=== PATIENT | male | born 1975 | race Hispanic/Latino ===

== ENCOUNTER 2018-02-15 11:29 | Emergency (ER) | payer OTHER, SELFPAY ==
[2018-02-15 11:30] VITALS: BP 132/80; PULSE 70; RESP 18; TEMP 36.7; O2SAT 98
--- NOTE | 2018-02-15 12:09 | ED.SOB ---
HPI - SOB/Dyspnea <SHANE Leiva - Last Filed: 02/15/18 14:34> General Chief Complaint: Shortness of Breath/Dyspnea Stated Complaint: SOB, LEFT SIDED PAIN Time Seen by Provider: 02/15/18 12:09 Source: patient and family History of Present Illness Patient presents with left lower rib pain. He states of 50 lb family member jumped on his back on Monday then he went for an 8 mi walk on Monday. That is when he started having pain. It was made worse yesterday on Monday when he was doing yard work and lifted heavy wheelbarrow. He states he felt popping when he lifted a heavy wheelbarrow. He states he is having trouble taking a deep breath because of the pain in his left lower side. He denies any chest pain, abdominal pain, dizziness, lightheadedness, fever, nausea, vomiting, diarrhea. He states he is not constipated and had a bowel movement yesterday. He denies urinary symptoms. He states he was taking both ibuprofen and Aleve yesterday for the pain and that helped a bit. However he has not taken anything for pain today as he ???wants the staff to see how much pain he is in.??? He rates his pain over 10/10 on a 0-10 scale was 0 being no pain and 10 being eaten alive bear. He states that it hurts to take a deep breath and cough. He states lying on his opposite side help so he does not have weight. Otherwise no position or activity makes him feel more comfortable. Related Data Home Medications Medication Instructions Recorded Confirmed loratadine 10 mg PO DAILY PRN 02/15/18 02/15/18 montelukast [Singulair] 10 mg PO DAILY 02/15/18 02/15/18 Allergies Allergy/AdvReac Type Severity Reaction Status Date / Time No Known Drug Allergies Allergy Verified 02/15/18 13:02 Review of Systems <SHANE Leiva - Last Filed: 02/15/18 14:34> Review of Systems GENERAL: Denies chills, fatigue, malaise, fever, sweats. HEENT: Denies sinus pain, ear pain, sore throat, difficulty swallowing, dizziness. RESPIRATORY: Denies dyspnea, cough, wheezing, hemoptysis, sputum. CARDIOVASCULAR: See HPI GASTROINTESTINAL: See HPI : Denies dysuria, frequency, incontinence, hematuria, urinary retention. MUSCULOSKELETAL: See HPI SKIN: Denies rash, skin lesions, or other NEUROLOGIC: Denies weakness, headache, numbness, change in speech, confusion, seizures, incoordination. PSYCHIATRIC: No concerning psychosocial issues. 12 point review of systems is negative except for those stated above Exam <AMRIK Leiva-BC - Last Filed: 02/15/18 14:34> Narrative Exam Narrative: GENERAL: This is a well-nourished, well-developed patient, lying on left side on stretcher. HEAD: Atraumatic. Normocephalic. No temporal or scalp tenderness. EYES: Pupils equal round and reactive. Extraocular motions intact. No scleral icterus. No injection or drainage. ENT: Nose without bleeding, purulent drainage or septal hematoma. Throat without erythema, tonsillar hypertrophy or exudate. Uvula midline. Airway patent. NECK: Trachea midline. No JVD or lymphadenopathy. Supple, nontender, no meningeal signs. CARDIOVASCULAR: Regular rate and rhythm without murmurs, gallops, or rubs. RESPIRATORY: Clear to auscultation. Breath sounds equal bilaterally. No wheezes, rales, or rhonchi. GASTROINTESTINAL: Abdomen soft, non-tender, nondistended. No hepato-splenomegaly, or palpable masses. No guarding. EXTREMITIES: No clubbing, cyanosis, or edema. No joint tenderness, effusion, or edema noted. BACK: Nontender without deformity or crepitance. No flank tenderness. NEURO: AOx3. SKIN: No rash or erythema. No ecchymosis, erythema, swelling noted left lower ribs. CHEST Wall: Pain on lateral compression of ribs. Pain on palpation of lower left ribs. Initial Vital Signs Initial Vital Signs: Vital Signs Temperature 98.0 F 02/15/18 11:30 Pulse Rate 70 02/15/18 11:30 Respiratory Rate 18 02/15/18 11:30 Blood Pressure 132/80 H 02/15/18 11:30 Pulse Oximetry 98 02/15/18 11:30 <Aylin Eugene MD - Last Filed: 02/15/18 14:41> Initial Vital Signs Initial Vital Signs: Vital Signs Temperature 98.0 F 02/15/18 11:30 Pulse Rate 70 02/15/18 11:30 Respiratory Rate 18 02/15/18 11:30 Blood Pressure 132/80 H 02/15/18 11:30 Pulse Oximetry 98 02/15/18 11:30 Course <SHANE Leiva - Last Filed: 02/15/18 14:34> Hospital Course: 12:10 - patient evaluated. X-ray ordered. Patient offered ice pack or heat pack. Patient declined as he ???wants staff to cm much pain he is in. 12:30-patinet to xray Orders Ordered: ED Orders 02/15/18 12:21 XR ribs LT min 3V w CXR1V Stat Discontinued Medications Ketorolac Tromethamine (Toradol) 60 mg IM NOW ONE Stop: 02/15/18 13:00 Last Admin: 02/15/18 13:07 Dose: 60 mg Reevaluation(s) Reevaluation #1: Patient has received Toradol at this time and is feeling slightly better. Discussed x-ray results with patient and family. is concerned about spleen and requesting ultrasound. Discussed at length that patient's abdominal exam is benign, likelihood of splenic injury is low especially given normal chest x-ray. Time: 13:15 Reevaluation #2: Dr. Eugene in to ultrasound patient for discomfort. No observable injury the ultrasound. Time: 13:35 Vital Signs - 8 hr 02/15/18 11:30 02/15/18 13:00 02/15/18 14:02 Temperature 98.0 F 98.8 F Pulse Rate 70 58 L 57 L Respiratory Rate 18 20 10 L Blood Pressure 132/80 H Blood Pressure [Right Arm] 103/53 L 110/70 Pulse Oximetry 98 96 100 <Aylin Eugene MD - Last Filed: 02/15/18 14:41> Orders Ordered: ED Orders 02/15/18 12:21 XR ribs LT min 3V w CXR1V Stat Discontinued Medications Ketorolac Tromethamine (Toradol) 60 mg IM NOW ONE Stop: 02/15/18 13:00 Last Admin: 02/15/18 13:07 Dose: 60 mg Vital Signs - 8 hr 02/15/18 11:30 02/15/18 13:00 02/15/18 14:02 Temperature 98.0 F 98.8 F Pulse Rate 70 58 L 57 L Respiratory Rate 18 20 10 L Blood Pressure 132/80 H Blood Pressure [Right Arm] 103/53 L 110/70 Pulse Oximetry 98 96 100 [facility] - SOB/Dyspnea <HSANE Leiva - Last Filed: 02/15/18 14:34> Medical Records Imaging Data Chest x-ray: Radiologist's impression: [address] [address] XRay Report Signed Patient: Davis Julien MR#: [id number] : 1975 Acct:[id number] Age/Sex: 42 / M Date of Service: 02/15/18 Loc: ED Accession Number: [id number] Procedure: XR ribs LT min 3V w CXR1V Ordering Provider: Tabatha Vasquez PROCEDURE: XR RIBS LT MIN 3V W CXR1V INDICATIONS: 42 year-old male with left rib pain after injury. TECHNIQUE: 2 views of the left ribs were acquired, along with a single view chest. COMPARISON: None. FINDINGS: Skin marker denotes the site of clinical concern. Surgical changes and devices: None. Bones and chest wall: No fractures or dislocations. No suspicious bony lesions. Overlying soft tissues appear unremarkable. Lungs and pleura: No pleural effusions or pneumothorax. Lungs appear clear. Mediastinum: Mediastinal contours appear normal. Heart size is normal. IMPRESSION: No acute bony injuries of the inferior left chest wall. Dictated by: Ollie Ferguson M.D. on 02/15/2018 at 12:58 Approved by: Ollie Ferguson M.D. on 02/15/2018 at 13:00 [facility] Narrative Medical decision making narrative: Patient presents with left-sided rib pain after yd work and having child jump on him. No fracture or displaced rib fracture noted on x-ray. Ultrasound shows no acute etiology regarding spleen. Exam and imaging are supportive of a rib contusion. Discussed at length with patient and continued ibuprofen, supportive care, taking deep breaths in order to prevent pneumonia. No questions or concerns upon discharge. Discharge Plan Departure Patient Disposition: Home, Self-Care Clinical Impression: Rib pain on left side Discharge Date/Time: 02/15/18 14:06 Interventions: ED Discharge Assessment Last Done: 02/15/18 14:05 Instructions: DI for Rib Contusion Activity Restrictions/Additional Instructions: Your chest x-ray came back normal and your ultrasound showed no damage to her spleen. We suggest continued ibuprofen and ice. Please do not take ibuprofen for about 6-8 hours after that Toradol injection. It is important to keep taking deep breaths as we do not want to to developing pneumonia from this injury. Feel free to come back to the emergency department or follow up with your primary care if needed. Prescriptions: No Action montelukast [Singulair] 10 mg Tablet 10 mg PO DAILY RF: 0 loratadine 10 mg Tablet 10 mg PO DAILY PRN (Reason: Allergy Symptoms) RF: 0 Referrals: Dorian Barajas CNP [Primary Care Provider] - <Aylin Eugene MD - Last Filed: 02/15/18 14:41> Sign Out Provider Sign Out Attestation: I attest to the documentation recorded. I was the attending of record and available in the ED throughout course. I agree with assessment and plan.
--- NOTE | 2018-02-15 12:10 | PC.NURSE ---
pt reports, son jumped on him (50pounds) couple days ago, then while walking last monday, felt and heard a pop left lower rib, now with severe muscle spasm and hurts to move or taking deep breath. has been taking naprosyn and ibuprofen, last dose yesterday. denies other injuries.
--- NOTE | 2018-02-15 12:21 | DI.RAD.S_ITS ---
PROCEDURE: XR RIBS LT MIN 3V W CXR1V INDICATIONS: 42 year-old male with left rib pain after injury. TECHNIQUE: 2 views of the left ribs were acquired, along with a single view chest. COMPARISON: None. FINDINGS: Skin marker denotes the site of clinical concern. Surgical changes and devices: None. Bones and chest wall: No fractures or dislocations. No suspicious bony lesions. Overlying soft tissues appear unremarkable. Lungs and pleura: No pleural effusions or pneumothorax. Lungs appear clear. Mediastinum: Mediastinal contours appear normal. Heart size is normal. IMPRESSION: No acute bony injuries of the inferior left chest wall. Dictated by: Ollie Ferguson M.D. on 02/15/2018 at 12:58 Approved by: Ollie Ferguson M.D. on 02/15/2018 at 13:00
[2018-02-15 13:00] VITALS: BP 103/53; PULSE 58; RESP 20; TEMP 37.1; O2SAT 96
[2018-02-15] MEDS: KETOROLAC 60 MG/2 ML VIAL IM (13:07)
--- NOTE | 2018-02-15 13:49 | PC.NURSE ---
pt in supine position, with comfort with movement.
[2018-02-15 14:02] VITALS: BP 110/70; PULSE 57; RESP 10; O2SAT 100
== END 2018-02-15 14:06 | disposition home or self-care (01) ==
PROVIDERS: Emergency Provider Nurse Practitioner Family; Family Provider Registered Nurse Diabetes Educator; PCP Registered Nurse Diabetes Educator
DX: R07.81 Pleurodynia (principal)
CPT/HCPCS: 71101; 96372; 99283; J1885

== ENCOUNTER 2019-10-31 23:04 | Emergency (ER) | payer OTHER, MEDICAID, SELFPAY ==
[2019-10-31 23:12] VITALS: BP 132/82; PULSE 104; RESP 20; TEMP 37.7; O2SAT 100
--- NOTE | 2019-10-31 23:30 | ED_ITS ---
HPI - Back Pain/Injury General Chief Complaint: Back Pain/Injury Stated Complaint: right side/back pain Time Seen by Provider: 10/31/19 23:26 Source: patient Mode of arrival: Ambulatory Limitations: no limitations History of Present Illness HPI Narrative: 44-year-old male here for evaluation of right-sided flank pain. He states that it started yesterday. Worsened today. Has had fevers and body aches and sore throat and headache. His kids were sick recently however they have improved. He was taken [id number] medications over the past couple days. Has had kidney stones in the past. States this does not feel like kidney stone. Related Data Home Medications Medication Instructions Recorded Confirmed loratadine 10 mg PO DAILY PRN 02/15/18 02/15/18 montelukast [Singulair] 10 mg PO DAILY 02/15/18 02/15/18 Allergies Allergy/AdvReac Type Severity Reaction Status Date / Time No Known Drug Allergies Allergy Verified 02/15/18 13:02 Review of Systems Constitutional Constitutional: Reports chills, Reports fatigue, Reports fever(s) and Reports headache(s) ENT Ears, Nose, Mouth, and Throat: Reports headache(s) Cardiovascular Cardiovascular: Denies chest pain and Denies dyspnea Respiratory Respiratory: Denies cough and Denies dyspnea Gastrointestinal Gastrointestinal: Denies abdominal pain, Denies change in bowel habits, Denies nausea and Denies vomiting Genitourinary Genitourinary: Denies hematuria, Denies dysuria and Reports flank pain Musculoskeletal Musculoskeletal: Reports myalgias and Reports arthralgias Integumentary/Breasts Skin/Breast: Denies lesions and Denies rash Neurologic Neurologic: Denies behavioral changes and Reports headache(s) Psychiatric Psychiatric: Denies behavioral changes Endocrine Endocrine: Reports fatigue Hematologic/Lymphatic Hematologic/Lymphatic: Denies easy bleeding and Denies easy bruising Patient History Medical History Abscess of left groin (Inactive) Folliculitis (Inactive) Social History Smoking Status: Former smoker Smoking Status: Former smoker alcohol intake frequency: 0-2 drinks per day Substance Use Type: does not use Exam Initial Vital Signs Initial Vital Signs: Vital Signs Temperature 99.9 F H 10/31/19 23:12 Pulse Rate 104 H 10/31/19 23:12 Respiratory Rate 20 10/31/19 23:12 Blood Pressure 132/82 10/31/19 23:12 Pulse Oximetry 100 10/31/19 23:12 Const General: cooperative, comfortable and well developed Limitations: mental status not altered HENMT Head: normal to inspection, normocephalic and No abrasion Neck Neck: no meningeal signs Resp Effort & Inspection: normal respiratory effort Auscultation: clear to auscultation bilaterally Cardio Rate: tachycardic Rhythm: regular rhythm Back/Spine/Pelvis Back: CVA tenderness right Skin Lesions: no lesions Rashes: no rashes Neuro General: alert, awake and oriented x3 Cognition: normal cognition Speech: speech normal Extrem General: normal to inspection and capillary refill normal Psych Appearance: grossly normal and well kempt Scores GCS Steve coma scale eye opening: Spontaneous Steve coma scale verbal response: Orientated [place] coma scale motor response: Obey commands [place] coma scale total score: 15 Course Orders Ordered: ED Orders 10/31/19 23:33 Basic Metabolic Panel Stat Complete Blood Count AUTO DIFF Stat 10/31/19 23:49 Influenza A & B (PCR) Stat 11/01/19 00:45 Urinalysis and Microscopic Stat Vital Signs Vital signs: Vital Signs - 8 hr 10/31/19 23:12 Temperature 99.9 F H Pulse Rate 104 H Respiratory Rate 20 Blood Pressure 132/82 Pulse Oximetry 100 MDM - Back Pain/Injury Lab Data Attestation: I reviewed the patient's lab results. Result diagrams: 11/01/19 00:10 11/01/19 00:10 Labs: Lab Results 10/31/19 11/01/19 11/01/19 Range/Units 23:49 00:10 00:10 WBC 5.9 (4.5-11.0) X10^3/uL RBC 5.14 (4.5-5.9) X10^6/uL Hgb 16.1 (13.5-17.5) g/dL Hct 46.2 (41-53) % MCV 90.0 (80-100) fL MCH 31.3 (26-34) PG MCHC 34.8 (30-36) % RDW 12.9 (11.6-14.8) % Plt Count 174 (150-400) X10^3/uL Neut % (Auto) 57.2 (50-75) % Lymph % (Auto) 24.7 L (25-40) % [place] % (Auto) 14.0 (3-14) % Eos % (Auto) 3.4 (2-4) % Baso % (Auto) 0.7 (0-2) % Neut # (Auto) 3400 (0535-3492) /uL Lymph # (Auto) 1500 (3329-7701) /uL [place] # (Auto) 800 (0-900) /uL Eos # (Auto) 200 (0-450) /uL Baso # (Auto) 0 (0-100) /uL Sodium 137 (137-145) mmol/L Potassium 3.9 (3.4-5.1) mmol/L Chloride 96 L (98-107) mmol/L Carbon Dioxide 31 (22-32) mmol/L BUN 15 (9-20) mg/dL Creatinine 0.90 (0.66-1.25) mg/dL Estimated GFR > 60.0 (>60) mL/min BUN/Creatinine Ratio 16.7 (6-22) Glucose 101 H (70-100) mg/dL Calcium 9.5 (8.4-10.2) mg/dL Urine Color Urine Appearance Urine pH (4.5-8.0) Ur Specific [place] (1.000-1.035) Urine Protein (Negative) Urine Glucose (UA) (Negative) g/dL Urine Ketones (NEGATIVE) Urine Occult Blood (Negative) Urine Nitrate (Negative) Urine Bilirubin (NEGATIVE) Urine Urobilinogen (0.2) E.U./dL Ur Leukocyte Esterase (NEGATIVE) Urine RBC (0-5/HPF) Urine WBC (0-5/HPF) Urine Bacteria (None) Ur Culture Indicated? Micro UA Comment Influenza A (RT-PCR) Flu a negative (NEGATIVE) Influenza B (RT-PCR) Flu b positive H (NEGATIVE) 11/01/19 Range/Units 00:45 WBC (4.5-11.0) X10^3/uL RBC (4.5-5.9) X10^6/uL Hgb (13.5-17.5) g/dL Hct (41-53) % MCV (80-100) fL MCH (26-34) PG MCHC (30-36) % RDW (11.6-14.8) % Plt Count (150-400) X10^3/uL Neut % (Auto) (50-75) % Lymph % (Auto) (25-40) % [place] % (Auto) (3-14) % Eos % (Auto) (2-4) % Baso % (Auto) (0-2) % Neut # (Auto) (8928-0458) /uL Lymph # (Auto) (7301-3780) /uL [place] # (Auto) (0-900) /uL Eos # (Auto) (0-450) /uL Baso # (Auto) (0-100) /uL Sodium (137-145) mmol/L Potassium (3.4-5.1) mmol/L Chloride (98-107) mmol/L Carbon Dioxide (22-32) mmol/L BUN (9-20) mg/dL Creatinine (0.66-1.25) mg/dL Estimated GFR (>60) mL/min BUN/Creatinine Ratio (6-22) Glucose (70-100) mg/dL Calcium (8.4-10.2) mg/dL Urine Color Yellow Urine Appearance Clear Urine pH 5.0 (4.5-8.0) Ur Specific [place] 1.020 (1.000-1.035) Urine Protein Negative (Negative) Urine Glucose (UA) Negative (Negative) g/dL Urine Ketones Negative (NEGATIVE) Urine Occult Blood Negative (Negative) Urine Nitrate Negative (Negative) Urine Bilirubin Negative (NEGATIVE) Urine Urobilinogen 0.2 (0.2) E.U./dL Ur Leukocyte Esterase Negative (NEGATIVE) Urine RBC None seen (0-5/HPF) Urine WBC None seen (0-5/HPF) Urine Bacteria None seen (None) Ur Culture Indicated? Cult not indicated Micro UA Comment Microscopic normal Influenza A (RT-PCR) (NEGATIVE) Influenza B (RT-PCR) (NEGATIVE) MDM Narrative Medical decision making narrative: Urine shows no signs of infection. Low suspicion for pyelonephritis. Low suspicion for kidney stone. No rash on his side. Low suspicion for zoster. Kidney functions unremarkable. He is flu B positive which is not surprising giving his history and physical. We did discuss use of Tylenol and/or ibuprofen. Discussed use of increasing his fluid intake. No indication for antibiotics. Patient was given return precautions and follow-up instructions. He expressed understanding and agreement plan. I do suspect his symptoms are related to musculoskeletal pain given his diagnosis of flu Discharge Plan Departure Patient Disposition: Home Clinical Impression: Influenza B Instructions: DI for Influenza -- Adult Activity Restrictions/Additional Instructions: Increase your fluid intake. You can take Tylenol and/or ibuprofen for any fevers or body aches. Return to the emergency department for any new or worsening symptoms Prescriptions: No Action montelukast [Singulair] 10 mg Tablet 10 mg PO DAILY RF: 0 loratadine 10 mg Tablet 10 mg PO DAILY PRN (Reason: Allergy Symptoms) RF: 0 Referrals: Dorian Barajas CNP [Primary Care Provider] - Stand Alone Forms: Work Release Note
[2019-11-01 00:20] LABS: Add Manual Diff / Slide Review NO; Basophils Absolute Auto 0 /uL (0-100); Basophils Percent Auto 0.7 % (0-2); Eosinophils Absolute Auto 200 /uL (0-450); Eosinophils Percent Auto 3.4 % (2-4); Hematocrit 46.2 % (41-53); Hemoglobin 16.1 g/dL (13.5-17.5); Lymphocytes Absolute Auto 1500 /uL (1100-4500); Lymphocytes Percent Auto 24.7 % (25-40); Mean Corpuscular HGB Conc 34.8 % (30-36); Mean Corpuscular Hemoglobin 31.3 PG (26-34); Monocytes Absolute Auto 800 /uL (0-900); Neutrophils Absolute Auto 3400 /uL (1500-7000); Neutrophils Percent Auto 57.2 % (50-75); Platelet Count 174 X10^3/uL (150-400); Red Blood Cell Count 5.14 X10^6/uL (4.5-5.9); Red Cell Distribution Width 12.9 % (11.6-14.8); White Blood Cell Count 5.9 X10^3/uL (4.5-11.0)
[2019-11-01 00:27] LABS: BUN Creatinine Ratio 16.7 (6-22); Blood Urea Nitrogen 15 mg/dL (9-20); Calcium 9.5 mg/dL (8.4-10.2); Carbon Dioxide 31 mmol/L (22-32); Chloride 96 mmol/L (98-107); Estimated Glomerular Filt Rate > 60.0 mL/min (>60); Glucose 101 mg/dL (70-100); HEMOLYSIS < 15 (0-50); Potassium 3.9 mmol/L (3.4-5.1); Sodium 137 mmol/L (137-145)
[2019-11-01 00:36] LABS: Influenza A - CEPHEID Flu A NEGATIVE (NEGATIVE); Influenza B - CEPHEID Flu B POSITIVE (NEGATIVE)
[2019-11-01 00:56] LABS: Bacteria Urine None Seen; RBC Urine None Seen (0-5/HPF); WBC Urine None Seen (0-5/HPF)
[2019-11-01 00:58] LABS: Appearance Urine UA CLEAR; Bilirubin Urine UA NEGATIVE (NEGATIVE); Color Urine UA YELLOW; Glucose Urine UA NEGATIVE (Negative); Ketones Urine UA NEGATIVE (NEGATIVE); Leukocyte Esterase Urine UA NEGATIVE (NEGATIVE); Nitrite Urine UA NEGATIVE (Negative); Occult Blood Urine UA NEGATIVE (Negative); Protein Urine UA NEGATIVE (Negative); Urobilinogen Urine UA 0.2 E.U./dL (0.2)
[2019-11-01 01:08] LABS: Culture Indicated Urine Cult Not Indicated; Urine Comments Microscopic Normal
[2019-11-01 01:33] VITALS: BP 131/81; PULSE 90; RESP 18; TEMP 37; O2SAT 99
== END 2019-11-01 01:34 | disposition home or self-care (01) ==
PROVIDERS: Emergency Provider Emergency Medicine; Family Provider Registered Nurse Diabetes Educator; PCP Registered Nurse Diabetes Educator
DX: J10.1 Influenza due to other identified influenza virus with other respiratory manifestations (principal)
CPT/HCPCS: 36415; 80048; 81001; 85025; 87502; 99281; 99283

== ENCOUNTER → 2021-01-20 09:51 | Outpatient (CLI) | payer OTHER, MEDICAID, SELFPAY ==
[2021-01-23 22:11] LABS: Alternaria alternata IgE <0.10 kU/L (Class 0); Aspergillus fumigatus IgE <0.10 kU/L (Class 0); Box Elder IgE 0.24 kU/L (Class 0/I); Cladosporium herbarum IgE <0.10 kU/L (Class 0); Cockroach IgE <0.10 kU/L (Class 0); Cottonwood IgE 0.25 kU/L (Class 0/I); Dog Dander IgE 0.38 kU/L (Class I); Elm Tree IgE 0.22 kU/L (Class 0/I); Immunoglobulin E 492 IU/mL (6-495); Milk IgE 0.17 kU/L (Class 0/I); Mountain Cedar IgE 0.23 kU/L (Class 0/I); Mouse Urine Proteins IgE <0.10 kU/L (Class 0); Nettle IgE 0.22 kU/L (Class 0/I); Oak Tree IgE 0.25 kU/L (Class 0/I); Penicillium chrysogen IgE <0.10 kU/L (Class 0); Pigweed, Common IgE 0.14 kU/L (Class 0/I); Silver Birch IgE 0.23 kU/L (Class 0/I); Timothy Grass IgE 0.23 kU/L (Class 0/I); Walnut Allery IgE 0.26 kU/L (Class 0/I); White ash IgE 0.24 kU/L (Class 0/I)
[2021-01-25 13:53] LABS: Almond IgE 0.21 kU/L (Class 0/I); Cashew Nut IgE 0.11 kU/L (Class 0/I); Codfish Allergy IgE < 0.10 kU/L (Class 0); Egg White IgE 0.29 kU/L (Class 0/I); Hazelnut IgE 0.29 kU/L (Class 0/I); Milk IgE 0.16 kU/L (Class 0/I); Peanut IgE 0.26 kU/L (Class 0/I); Salmon Allergy IgE < 0.10 kU/L (Class 0); Scallop Allergy IgE < 0.10 kU/L (Class 0); Sesame seed Allergy IgE 0.26 kU/L (Class 0/I); Shrimp IgE <0.10 kU/L (Class 0); Soybean IgE 0.17 kU/L (Class 0/I); Tuna Allergy IgE < 0.10 kU/L (Class 0); Walnut IgE 0.12 kU/L (Class 0/I); Wheat Allergy IgE 0.19 kU/L (Class 0/I)
== END ==
PROVIDERS: Family Provider Registered Nurse Diabetes Educator; PCP Registered Nurse Diabetes Educator; Referring Provider Registered Nurse Diabetes Educator; Visit Provider Registered Nurse Diabetes Educator
DX: J30.9 Allergic rhinitis, unspecified (principal); Z91.018 Allergy to other foods
CPT/HCPCS: 82785; 86003

== ENCOUNTER → 2021-01-20 10:14 | Outpatient (CLI) | payer OTHER, MEDICAID, SELFPAY ==
[2021-01-20] MEDS: COVID-19 VACC #1, MRNA(MOD) 100 MCG/0.5 ML VIAL IM (10:22)
== END ==
PROVIDERS: Family Provider Registered Nurse Diabetes Educator; PCP Registered Nurse Diabetes Educator; Visit Provider Internal Medicine
DX: Z23 Encounter for immunization (principal)
CPT/HCPCS: 0011A; 91301

== ENCOUNTER → 2021-02-17 10:01 | Outpatient (CLI) | payer OTHER, MEDICAID, SELFPAY ==
[2021-02-17] MEDS: COVID-19 VACC #2, MRNA(MOD) 100 MCG/0.5 ML VIAL IM (10:06)
== END ==
PROVIDERS: Family Provider Registered Nurse Diabetes Educator; PCP Registered Nurse Diabetes Educator; Visit Provider Internal Medicine
DX: Z23 Encounter for immunization (principal)
CPT/HCPCS: 0012A; 91301

== ENCOUNTER 2022-07-18 08:39 | Emergency (ER) | payer OTHER, SELFPAY ==
[2022-07-18 08:49] VITALS: BP 141/82; PULSE 70; RESP 16; TEMP 36.9; O2SAT 97; BMI 23.3
--- NOTE | 2022-07-18 09:24 | ED_ITS ---
HPI - Back Pain/Injury General Chief Complaint: Back Pain/Injury Stated Complaint: back pain herniated disc x2 days Time Seen by Provider: 07/18/22 09:21 Source: patient Mode of arrival: Ambulatory Limitations: no limitations History of Present Illness HPI Narrative: This is a 46-year-old male with acute on chronic back pain who has had prior injections in his lower back approximately 5 years ago. Patient states Monday he was installing a doggie door for his sister he was on the ground and on his hands and knees for a prolonged. When he started to get up he tweaked his back. 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 Today he states it is much worse. He describes the pain as being his lower lumbar region bilaterally with no radiation. No paresthesias, no numbness or weakness. Patient denies any loss of bowel or bladder control. No saddle anesthesia. No fevers or chills no other GI or urinary symptoms. He tried a single dose of ibuprofen earlier today. He has had Percocet and gabapentin in the past. Patient states no other daily medications. No other surgeries. Denies any drug allergies. Former smoker, occasional alcohol, no illicit. His primary care is Dorian Barajas. Patient's main goal at this moment is short-term pain management till he can follow-up. Related Data Previous Rx's Medication Instructions Recorded loratadine 10 mg tablet 10 mg PO DAILY PRN Allergy 08/27/20 Symptoms #90 tabs montelukast 10 mg tablet 10 mg PO DAILY #90 tabs 08/27/20 (Singulair) gabapentin 300 mg capsule 300 mg PO DAILY #14 caps 07/18/22 oxycodone 5 mg tablet 5 mg PO Q6H PRN pain #10 tabs 07/18/22 meloxicam 7.5 mg tablet 7.5 mg PO BID PRN pain (scale 07/19/22 score 1-3) #30 tabs Allergies Allergy/AdvReac Type Severity Reaction Status Date / Time No Known Drug Allergies Allergy Verified 07/19/22 11:23 Review of Systems Review of Systems ROS Unobtainable: All systems reviewed & are unremarkable except as noted in HPI and below Patient History Medical History Abscess of left groin Allergic rhinitis Bilateral thumb pain Chronic back pain (~2004) Folliculitis Hand pain Kidney stones (~2018) Surgical History Anesthesia History of vasectomy (~2009) Family History Father Diabetes mellitus Mother History of heart disease Hypertension Mental health problem Stroke Social History Smoking Status: Former smoker Smoking Status: Former smoker alcohol intake frequency: 0-2 drinks per day Substance Use Type: does not use Exam Narrative Exam Narrative: GENERAL: Alert and oriented x three, male in [id number] distress. HEENT: Head normocephalic, atraumatic, EOMI, pupils reactive, face symmetric, moist mucous membranes NECK: Supple, full range of motion CARDIOVASCULAR: Regular rate and rhythm without murmurs, rubs or gallops. RESPIRATORY: Breath sounds equal bilaterally, no wheezes rales or rhonchi. ABDOMEN: Soft, nontender. Normoactive bowel sounds all 4 quadrants. No guarding or rebound, rigidity, no mass : No CVA tenderness BACK: No cervical, thoracic or lumbar vertebral point tenderness. Patient has decreased range of motion. Patient's gait is antalgic. Rectal exam is deferred. Muscle strength is 5/5 in lower extremities, DTRs are 2/4 and lower extremities. Dorsalis pedis and tibialis pulses are 2+ and lower extremities. Sensation is intact in the lower extremities. EXTREMITIES: Normal range of motion, no clubbing or edema. Neurovascularly intact NEUROLOGICAL: Cranial nerves II through XII grossly intact. Moving all extremities SKIN: Warm, dry, no petechiae, no rashes or lesions. Initial Vital Signs Initial Vital Signs: Vital Signs Temperature 98.4 F 07/18/22 08:49 Pulse Rate 70 07/18/22 08:49 Respiratory Rate 16 07/18/22 08:49 Blood Pressure 141/82 H 07/18/22 08:49 Pulse Oximetry 97 07/18/22 08:49 Oxygen Delivery Method 07/18/22 08:49 Course Orders Ordered: Discontinued Medications Ketorolac Tromethamine (Ketorolac 30 Mg/Ml Vial) 30 mg IM NOW ONE Stop: 07/18/22 10:19 Last Admin: 07/18/22 10:25 Dose: 30 mg Documented By: SOCORRO Vital Signs Vital signs: Vital Signs - 8 hr 07/18/22 08:49 Temperature 98.4 F Pulse Rate 70 Respiratory Rate 16 Blood Pressure 141/82 H Pulse Oximetry 97 Oxygen Delivery Method Room Air MDM - Back Pain/Injury MDM Narrative Medical decision making narrative: 46-year-old male with acute on chronic exacerbation of back pain without any red flag symptoms. Patient plan for Toradol. Short course of pain medication for home and follow-up. Patient states that he has seen for injections in the past and if his symptoms are persisting can easily follow-up for this. Return precautions. Patient was ambulated in the department before I saw him. Discharge Plan Departure Patient Disposition: Home Clinical Impression: Acute exacerbation of chronic low back pain Activity Restrictions/Additional Instructions: Follow-up with your primary care for recheck. You may take her home meloxicam as prescribed. You can take Tylenol up to a 1000 mg every 6 hours with this medication. If in adequate you can add gabapentin would do tablets every 8 hours. And a short course of narcotic pain medication is included. This medication can make you sleepy do not drive, perform hazardous activities or make any major decisions while taking it. This medication will make you constipated please take a stool softener once to twice daily until stools are soft and regular. Prescription sent to [facility] in [place]. Please return for fevers, rapidly worsening pain, new weakness, loss of sensation, inability to move extremities, loss of bowel or bladder control, inability to ambulate or other new or concerning changes. Prescriptions: New gabapentin 300 mg capsule 300 mg PO DAILY Qty: 14 0RF oxycodone 5 mg tablet 5 mg PO Q6H PRN (Reason: pain) Qty: 10 0RF No Action montelukast [Singulair] 10 mg tablet 10 mg PO DAILY Qty: 90 3RF loratadine 10 mg tablet 10 mg PO DAILY PRN (Reason: Allergy Symptoms) Qty: 90 3RF meloxicam 7.5 mg tablet 7.5 mg PO BID PRN (Reason: pain (scale score 1-3)) Qty: 30 2RF Referrals: Dorian Barajas ARNP [Primary Care Provider] - Stand Alone Forms: Work Release Note Visit Report Forms: Patient Portal/API
[2022-07-18] MEDS: KETOROLAC 30 MG/ML VIAL IM (10:25)
[2022-07-18 12:29] VITALS: BP 114/68
== END 2022-07-18 10:45 | disposition home or self-care (01) ==
PROVIDERS: Emergency Provider Emergency Medicine; Family Provider Registered Nurse Diabetes Educator; PCP Registered Nurse Diabetes Educator
DX: M54.50 Low back pain, unspecified (principal)
CPT/HCPCS: 96372; 99283; J1885

== ENCOUNTER → 2022-07-26 09:39 | Outpatient (CLI) | payer OTHER, SELFPAY ==
[2022-07-26 13:12] LABS: Alanine Aminotransferase 23 IU/L (<50); Albumin 4.4 g/dL (3.5-5.0); Albumin Globulin Ratio 1.2 (1.0-2.8); Alkaline Phosphatase 94 U/L (38-126); Aspartate Aminotransferase 24 IU/L (17-59); Bilirubin Total 0.5 mg/dL (0.2-1.3); Blood Urea Nitrogen 15 mg/dL (9-20); Calcium 9.5 mg/dL (8.4-10.2); Carbon Dioxide 30 mmol/L (22-32); Chloride 101 mmol/L (98-107); Cholesterol 205 mg/dL (140-199); Estimated Glomerular Filt Rate > 60 mL/min (>60); Globulin 3.6 g/dL (1.7-4.1); Glucose 81 mg/dL (70-100); HDL Cholesterol 60 mg/dL (40-60); HEMOLYSIS < 15 (0-50); LDL Cholesterol Calculated 118 mg/dL (<100); Potassium 4.4 mmol/L (3.4-5.1); Sodium 141 mmol/L (137-145); Triglycerides 133 mg/dL (35-150)
[2022-07-26 13:13] LABS: Hematocrit 46.3 % (41-53); Hemoglobin 15.7 g/dL (13.5-17.5); Mean Corpuscular Hemoglobin 31.3 PG (26-34); Mean Corpuscular Volume 92.1 fL (80-100); Platelet Count 193 X10^3/uL (150-400); Red Blood Cell Count 5.03 X10^6/uL (4.5-5.9); Red Cell Distribution Width 12.6 % (11.6-14.8); White Blood Cell Count 6.8 X10^3/uL (4.5-11.0)
[2022-07-26 13:40] LABS: TSH w/ Reflex to FT4 1.47 uIU/mL (0.47-4.68)
== END ==
PROVIDERS: Family Provider Registered Nurse Diabetes Educator; PCP Registered Nurse Diabetes Educator; Referring Provider Registered Nurse Diabetes Educator; Visit Provider Registered Nurse Diabetes Educator
DX: Z00.00 Encounter for general adult medical examination without abnormal findings (principal)
CPT/HCPCS: 36415; 80053; 80061; 84443; 85027

== ENCOUNTER → 2023-03-14 09:34 | Outpatient (CLI) | payer OTHER, SELFPAY ==
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
== END ==
PROVIDERS: Family Provider Registered Nurse Diabetes Educator; PCP Registered Nurse Diabetes Educator; Referring Provider Family Medicine; Visit Provider Family Medicine
DX: M47.812 Spondylosis without myelopathy or radiculopathy, cervical region (principal); M54.9 Dorsalgia, unspecified
CPT/HCPCS: 72052

== ENCOUNTER 2024-02-28 08:45 | Emergency (ER) | payer OTHER, SELFPAY ==
[2024-02-28] VITALS (14 sets, daily range): BP systolic 101–130; BP diastolic 52–80; PULSE 52–71; RESP 13–32; TEMP 36.1; O2SAT 98–100; BMI 22.2
--- NOTE | 2024-02-28 08:54 | DI.RAD.S_ITS ---
PROCEDURE: XR CHEST 1V INDICATIONS: chest pain TECHNIQUE: One view of the chest was acquired. COMPARISON: None. FINDINGS: Surgical changes and devices: None. Lungs and pleura: Lungs are clear. No pleural effusions or pneumothorax. Mediastinum: Mediastinal contours appear normal. Heart size is normal. Bones and chest wall: No suspicious bony lesions. Overlying soft tissues appear unremarkable. IMPRESSION: No acute cardiopulmonary abnormality is seen. Dictated by: Jan Dong M.D. on 02/28/2024 at 9:22 Approved by: Jan Dong M.D. on 02/28/2024 at 9:22
[2024-02-28 09:20] LABS: Add Manual Diff / Slide Review NO; Basophils Absolute Auto 0 /uL (0-100); Basophils Percent Auto 0.5 % (0-2); Eosinophils Absolute Auto 200 /uL (0-450); Eosinophils Percent Auto 2.4 % (2-4); Hematocrit 44.8 % (41-53); Hemoglobin 15.4 g/dL (13.5-17.5); Lymphocytes Absolute Auto 900 /uL (1100-4500); Lymphocytes Percent Auto 13.6 % (25-40); Mean Corpuscular HGB Conc 34.5 % (30-36); Mean Corpuscular Hemoglobin 31.5 PG (26-34); Mean Corpuscular Volume 91.3 fL (80-100); Monocytes Absolute Auto 300 /uL (0-900); Monocytes Percent Auto 4.3 % (3-14); Neutrophils Absolute Auto 5300 /uL (1500-7000); Neutrophils Percent Auto 79.2 % (50-75); Platelet Count 171 X10^3/uL (150-400); Red Blood Cell Count 4.91 X10^6/uL (4.5-5.9); Red Cell Distribution Width 12.8 % (11.6-14.8); White Blood Cell Count 6.6 X10^3/uL (4.5-11.0)
[2024-02-28 09:25] LABS: Prothrombin Time 11.4 SECONDS (9.4-12.5)
[2024-02-28 09:28] LABS: PTT Partial Thromboplastin Tim 26 SECONDS (25.1-36.5)
[2024-02-28 09:32] LABS: Alanine Aminotransferase 27 IU/L (<50); Albumin 4.5 g/dL (3.5-5.0); Albumin Globulin Ratio 1.5 (1.0-2.8); Alkaline Phosphatase 84 U/L (38-126); Aspartate Aminotransferase 28 IU/L (17-59); BUN Creatinine Ratio 21.6 (6-22); Bilirubin Total 0.7 mg/dL (0.2-1.3); Blood Urea Nitrogen 16 mg/dL (9-20); Calcium 8.8 mg/dL (8.4-10.2); Carbon Dioxide 26 mmol/L (22-32); Chloride 108 mmol/L (98-107); Creatine Kinase 97 U/L (55-170); Estimated Glomerular Filt Rate > 60 mL/min (>60); Glucose 129 mg/dL (70-100); HEMOLYSIS < 15 (0-50); Lipase 57 U/L (23-300); Magnesium 2.1 mg/dL (1.6-2.3); Potassium 4.4 mmol/L (3.4-5.1); Sodium 139 mmol/L (137-145); Total Protein 7.5 g/dL (6.3-8.2)
[2024-02-28 09:41] LABS: Troponin I < 0.012 ng/mL (0.01-0.034)
--- NOTE | 2024-02-28 11:03 | ED.DIZZY ---
HPI - Dizziness General Chief Complaint: Dizziness Stated Complaint: Nausea, Light Headed, Vision issues Time Seen by Provider: 02/28/24 11:03 Source: patient Mode of arrival: Family Vehicle History of Present Illness HPI Narrative: 48-year-old male has had 2 days dry cough, this morning was doing his stretching, then started to feel nauseated with spinning dizziness sensation, worse with head or body movements, had emesis nonbloody, seemed to feel a little bit better when holding still, then had a 2nd episode that was worse with body movements and had movements. No focal numbness or weakness to face arm or leg. No history of trauma injury. He does not take blood thinner medications. No shaking seizure activity, no incontinence of urine or stool. He felt like he might almost pass out with 1 of the dizziness episodes. Symptoms feel better if he holds still and does not move his head. He has not felt feverish. He has not had loose stools diarrhea or abdominal pain. Related Data Home Medications Medication Instructions Recorded Confirmed montelukast 10 mg tablet 10 mg PO DAILY PRN 08/01/22 05/18/23 (Francie) Previous Rx's Medication Instructions Recorded loratadine 10 mg tablet 10 mg PO DAILY PRN Allergy 08/27/20 Symptoms #90 tabs meloxicam 7.5 mg tablet 7.5 mg PO BID PRN pain (scale 07/19/22 score 1-3) #30 tabs meclizine 25 mg tablet 25 mg PO TID 7 days #21 tabs 02/28/24 Allergies Allergy/AdvReac Type Severity Reaction Status Date / Time No Known Drug Allergies Allergy Verified 02/28/24 08:53 Review of Systems Review of Systems Narrative: as per HPI Patient History Medical History Abscess of left groin Allergic rhinitis Bilateral thumb pain Chronic back pain (~2004) Dyslipidemia Folliculitis Hand pain Kidney stones (~2018) Surgical History Anesthesia History of vasectomy (~2009) Family History Father Diabetes mellitus Mother History of heart disease Hypertension Mental health problem Stroke Social History Smoking Status: Former smoker Smoking Status: Former smoker tobacco type: cigarettes and vaping alcohol intake frequency: 0-2 drinks per day Substance Use Type: does not use Exam Narrative Exam Narrative: GENERAL: Well-developed patient, in mild distress. HEAD: Atraumatic. Normocephalic. EYES: Pupils equal round and reactive. Extraocular motions intact. No scleral icterus. No injection or drainage. ENT: Nose without bleeding, purulent drainage. Throat without erythema, tonsillar hypertrophy or exudate. Airway patent. NECK: Trachea midline. Non tender CARDIOVASCULAR: Regular rate and rhythm without murmurs, gallops, or rubs. RESPIRATORY: Clear to auscultation. Breath sounds equal bilaterally. No wheezes, rales, or rhonchi. GASTROINTESTINAL: Abdomen soft, non-tender, nondistended. EXTREMITIES: No edema or joint tenderness. BACK: Nontender without deformity or crepitance. No flank tenderness. NEURO: AOx3. Some dizziness with isolated head movements. No gross motor defect. Motor 5/5 upper extremities and lower extremities. [id number] testing normal. SKIN: No rash or erythema of visible areas Initial Vital Signs Initial Vital Signs: Vital Signs Temperature 97.0 F L 02/28/24 08:49 Pulse Rate 69 02/28/24 08:49 Respiratory Rate 18 02/28/24 08:49 Blood Pressure 118/75 02/28/24 08:49 Pulse Oximetry 100 02/28/24 08:49 Oxygen Delivery Method Room Air 02/28/24 08:49 Course Orders Ordered: Discontinued Medications Aspirin (Aspirin 81 Mg Chew Tab) 324 mg PO NOW ONE Stop: 02/28/24 08:55 Diphenhydramine HCl (Diphenhydramine 50 Mg/Ml Vial) 25 mg IV NOW ONE Stop: 02/28/24 11:34 Last Admin: 02/28/24 11:47 Dose: 25 mg Documented By: LUCA Meclizine HCl (Meclizine Hcl 12.5 Mg Tablet) 50 mg PO NOW ONE Stop: 02/28/24 11:33 Last Admin: 02/28/24 11:47 Dose: 50 mg Documented By: LUCA Ondansetron HCl (Ondansetron 4 Mg/2 Ml Inj) 4 mg IV NOW ONE Stop: 02/28/24 11:33 Last Admin: 02/28/24 11:46 Dose: 4 mg Documented By: LUCA Vital Signs Vital signs: Vital Signs - 8 hr 02/28/24 14:00 02/28/24 14:00 02/28/24 15:07 Pulse Rate 62 62 Respiratory Rate 32 H 18 Blood Pressure 101/72 128/76 Pulse Oximetry 98 100 Oxygen Delivery Method Room Air MDM - Dizziness Lab Data Attestation: I reviewed the patient's lab results. 02/28/24 09:09 02/28/24 09:09 Labs: Lab Results 02/28/24 Range/Units 09:09 WBC 6.6 (4.5-11.0) X10^3/uL RBC 4.91 (4.5-5.9) X10^6/uL Hgb 15.4 (13.5-17.5) g/dL Hct 44.8 (41-53) % MCV 91.3 (80-100) fL MCH 31.5 (26-34) PG MCHC 34.5 (30-36) % RDW 12.8 (11.6-14.8) % Plt Count 171 (150-400) X10^3/uL Neut % (Auto) 79.2 H (50-75) % Lymph % (Auto) 13.6 L (25-40) % [place] % (Auto) 4.3 (3-14) % Eos % (Auto) 2.4 (2-4) % Baso % (Auto) 0.5 (0-2) % Neut # (Auto) 5300 (0116-1947) /uL Lymph # (Auto) 900 L (1849-8930) /uL [place] # (Auto) 300 (0-900) /uL Eos # (Auto) 200 (0-450) /uL Baso # (Auto) 0 (0-100) /uL PT 11.4 (9.4-12.5) SECONDS INR 1.0 (0.9-1.3) APTT 26 (25.1-36.5) SECONDS Sodium 139 (137-145) mmol/L Potassium 4.4 (3.4-5.1) mmol/L Chloride 108 H (98-107) mmol/L Carbon Dioxide 26 (22-32) mmol/L BUN 16 (9-20) mg/dL Creatinine 0.74 (0.66-1.25) mg/dL Estimated GFR > 60 (>60) mL/min BUN/Creatinine Ratio 21.6 (6-22) Glucose 129 H (70-100) mg/dL Calcium 8.8 (8.4-10.2) mg/dL Magnesium 2.1 (1.6-2.3) mg/dL Total Bilirubin 0.7 (0.2-1.3) mg/dL AST 28 (17-59) IU/L ALT 27 (<50) IU/L Alkaline Phosphatase 84 (38-126) U/L Total Creatine Kinase 97 (55-170) U/L Troponin I < 0.012 (0.01-0.034) ng/mL Total Protein 7.5 (6.3-8.2) g/dL Albumin 4.5 (3.5-5.0) g/dL Globulin 3.0 (1.7-4.1) g/dL Albumin/Globulin Ratio 1.5 (1.0-2.8) Lipase 57 (23-300) U/L ECG Data Attestation: I personally reviewed and interpreted this ECG as follows: Interpretation: Sinus bradycardia with rate of 58, no obvious ST segment elevation or depression changes. NE 138, QRS 94, QTC 390. MDM Narrative Medical decision making narrative: 48-year-old male with recent cough, vertigo spinning sensation, [id number] exam normal, reducible with isolated head in position change movements, seems consistent with peripheral labyrinthitis cause, doubt central stroke. EKG shows sinus bradycardia, no obvious ischemic changes, lab screening unremarkable. Trial of meclizine. Hold CT brain imaging for now. Patient much improved, was able to take oral food provided by family member unknown to nursing, no difficulties taking oral intake. Moves neck well without current dizziness symptoms, much improved. We will discharge home on further course of meclizine to use as needed. Discharge Plan Departure Patient Disposition: Home Clinical Impression: Acute labyrinthitis, Dizziness Prescriptions: New meclizine 25 mg tablet 25 mg PO TID 7 Days Qty: 21 0RF No Action loratadine 10 mg tablet 10 mg PO DAILY PRN (Reason: Allergy Symptoms) Qty: 90 3RF meloxicam 7.5 mg tablet 7.5 mg PO BID PRN (Reason: pain (scale score 1-3)) Qty: 30 2RF montelukast [Singulair] 10 mg tablet 10 mg PO DAILY PRN Referrals: Dorian Barajas ARNP [Primary Care Provider] - Stand Alone Forms: Patient Portal/API
[2024-02-28] MEDS: ONDANSETRON 4 MG/2 ML INJ IV (11:46)
[2024-02-28] MEDS: diphenhydrAMINE 50 MG/ML VIAL 25 MG IV (11:47)
[2024-02-28] MEDS: MECLIZINE HCL 12.5 MG TABLET 50 MG PO (11:47)
--- NOTE | 2024-02-28 14:29 | PC.NURSE ---
pt states he is feeling better now. he ate some sushi his brought and drank some water. he is able to keep it all down. still slightly dizzy but feels better.
== END 2024-02-28 15:09 | disposition home or self-care (01) ==
PROVIDERS: Emergency Provider Emergency Medicine; Family Provider Registered Nurse Diabetes Educator; PCP Registered Nurse Diabetes Educator
DX: H83.09 Labyrinthitis, unspecified ear (principal); R42 Dizziness and giddiness; R07.9 Chest pain, unspecified; R11.0 Nausea; R00.1 Bradycardia, unspecified
CPT/HCPCS: 36415; 71045; 80053; 82550; 83690; 83735; 84484; 85025; 85610; 85730; 93005; 96374; 96375; 99284; J1200; J2405

== ENCOUNTER 2024-06-02 14:17 | Emergency (ER) | payer OTHER, SELFPAY ==
[2024-06-02 14:25] VITALS: BP 135/78; PULSE 73; RESP 16; TEMP 36.2; O2SAT 98; BMI 22.9
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
[2024-06-02] MEDS: BACITRACIN OINT 0.9 GM PCKT 1 APPLIC TOP (16:57)
[2024-06-02 17:37] VITALS: BP 139/37; PULSE 63; RESP 16; O2SAT 100
== END 2024-06-02 18:20 | disposition home or self-care (01) ==
PROVIDERS: Emergency Provider Emergency Medicine; Family Provider Registered Nurse Diabetes Educator; PCP Registered Nurse Diabetes Educator
DX: S06.0X0A Concussion without loss of consciousness, initial encounter (principal); S16.1XXA Strain of muscle, fascia and tendon at neck level, initial encounter; S39.012A Strain of muscle, fascia and tendon of lower back, initial encounter; S00.01XA Abrasion of scalp, initial encounter; R42 Dizziness and giddiness; V89.2XXA Person injured in unspecified motor-vehicle accident, traffic, initial encounter
CPT/HCPCS: 70450; 72125; 72131; 99282; 99284

== ENCOUNTER → 2025-09-20 11:05 | Outpatient (CLI) | payer OTHER, SELFPAY ==
[2025-09-20 12:20] LABS: Hematocrit 46.2 % (41-53); Hemoglobin 15.9 g/dL (13.5-17.5); Mean Corpuscular HGB Conc 34.4 % (30-36); Mean Corpuscular Hemoglobin 31.2 PG (26-34); Mean Corpuscular Volume 90.6 fL (80-100); Platelet Count 198 X10^3/uL (150-400)
[2025-09-20 12:40] LABS: Alanine Aminotransferase 18 IU/L (<50); Albumin 4.8 g/dL (3.5-5.0); Albumin Globulin Ratio 1.5 (1.0-2.8); Alkaline Phosphatase 84 U/L (38-126); Blood Urea Nitrogen 15 mg/dL (9-20); Calcium 9.7 mg/dL (8.4-10.2); Carbon Dioxide 28 mmol/L (22-32); Chloride 103 mmol/L (98-107); Estimated Glomerular Filt Rate > 60 mL/min (>60); Globulin 3.2 g/dL (1.7-4.1); Glucose 87 mg/dL (70-99); HDL Cholesterol 67 mg/dL (40-60); HEMOLYSIS < 15 (0-50); Potassium 4.7 mmol/L (3.4-5.1); Sodium 140 mmol/L (137-145); Total Protein 8.0 g/dL (6.3-8.2)
[2025-09-20 12:42] LABS: Cholesterol 225 mg/dL (140-199); Triglycerides 58 mg/dL (35-150)
[2025-09-20 13:12] LABS: TSH w/ Reflex to FT4 0.98 uIU/mL (0.47-4.68)
== END ==
PROVIDERS: Family Provider Registered Nurse Diabetes Educator; PCP Registered Nurse Diabetes Educator; Referring Provider Registered Nurse Diabetes Educator; Visit Provider Registered Nurse Diabetes Educator
DX: Z00.00 Encounter for general adult medical examination without abnormal findings (principal); E78.5 Hyperlipidemia, unspecified
CPT/HCPCS: 36415; 80053; 80061; 84443; 85027